=== PATIENT | male | born 1970 | race Caucasian/White ===

== ENCOUNTER 2018-01-24 15:14 | Observation (INO) | payer OTHER ==
[~2018-01-24] VITALS: Ht 182.9 cm; Wt 95.4 kg
[~2018-01-24 15:14] MED LIST: BLOOD THINNER; ESOM40CA25 PO; INSU100V13 SQ; LISI-334 PO; METF500T PO; METF500T5 PO
--- NOTE | 2018-01-24 15:28 | EKG ---
[address] [address] Test Date: 2018-01-24 Test Time: 15:24:24 Pat Name: ANIYA SOLO Department: Room: Gender: M Speech Clinician: : 1970 Requested By: BELEN URBINA Order Number: [id number] Reading MD: Measurements Intervals [place] Rate: 78 P: 25 IN: 164 QRS: -21 QRSD: 96 T: 24 QT: 378 QTc: 434 Interpretive Statements SINUS RHYTHM LEFTWARD AXIS QRS(T) CONTOUR ABNORMALITY CONSIDER ANTEROSEPTAL MYOCARDIAL DAMAGE POSSIBLY ABNORMAL ECG RI6.01 Unconfirmed report No previous ECG available for comparison
[2018-01-24] MEDS ORDERED: NITROGLYCERIN SUBLINGUAL 0.4 MG BOTTLE OF 25. SL PRN (15:30)
[2018-01-24] MEDS ORDERED: ASPIRIN 81 MG TAB.CHEW PO ONE (15:45)
[2018-01-24 15:54] LABS: BASO % 0 % (0-3); EOS # 0.1 x10^3/uL (0.0-0.7); EOS % 2 % (0-3); HEMATOCRIT 40.6 % (39.0-53.0); HEMOGLOBIN 14.1 g/dL (13.0-17.5); LYMPH # 1.7 x10^3/uL (1.0-4.8); LYMPH % 19 % (24-48); MEAN CORPUSCULAR HEMOGLOBIN 30 pg (25-35); MEAN CORPUSCULAR HGB CONC 35 g/dL (31-37); MEAN CORPUSCULAR VOLUME 85 fL (79-100); MONO # 0.5 x10^3/uL (0.0-1.1); MONO % 6 % (0-9); NEUT # 6.4 x10^3uL (1.8-7.7); NEUT % 73 % (31-73); PLATELET COUNT 222 x10^3/uL (140-400); RED BLOOD COUNT 4.76 x10^6/uL (4.30-5.70); RED CELL DISTRIBUTION WIDTH 13.7 % (11.5-14.5); WHITE BLOOD COUNT 8.8 x10^3/uL (4.0-11.0)
--- NOTE | 2018-01-24 15:58 | RAD ---
PORTABLE CHEST 1V dated 01/24/2018 3:20 PM. Comparison: 06/06/2014 Clinical Indication: chest pain x 2 days, pt shielded no hx of heart or lung disease. Findings: Single upright portable exam performed. Heart and mediastinal contours are stable. Lungs are somewhat hyperinflated but otherwise clear. No consolidation or pleural effusion. No pneumothorax. Impression: No acute findings. Electronically signed by: Chip An MD (01/24/2018 3:54 PM) [facility]
[2018-01-24 16:16] LABS: ALBUMIN 3.8 g/dL (3.4-5.0); CALCIUM 8.8 mg/dL (8.5-10.1); CREATININE 1.1 mg/dL (0.7-1.3); GFR 72.4; MAGNESIUM 1.8 mg/dL (1.8-2.4); TOTAL BILIRUBIN 1.1 mg/dL (0.2-1.0); TOTAL PROTEIN 7.6 g/dL (6.4-8.2)
[2018-01-24 16:18] LABS: POTASSIUM 3.8 mmol/L (3.5-5.1)
--- NOTE | 2018-01-24 16:25 | PHYS DOC ---
Past History Past Medical History: Diabetes, Hypertension, Other Past Surgical History: Appendectomy, Other Smoking: Non-smoker Alcohol Use: None Drug Use: None Adult General Chief Complaint Chief Complaint: CHEST PAIN HPI HPI 47-year-old male patient with history of diabetes mellitus and hypertension states she woke up at 2300 last night because of left side and substernal sharp chest pain with left upper extremity numbness constant pain that getting force with movement and taking deep breaths. Patient complaining of shortness of breath, dizziness and palpitations without nausea, fever and chills, cough and congestion. Patient states his pain was 10 over 10 last night and rated his pain 9/10 at arrival to ER. She states he took nitroglycerin 1 without change of his pain. Patient denies coronary artery disease but has family history of coronary artery disease. Review of Systems Review of Systems Constitutional: Denies fever or chills [] Eyes: Denies change in visual acuity, redness, or eye pain [] HENT: Denies nasal congestion or sore throat [] Respiratory: Denies cough or shortness of breath [] Cardiovascular: No additional information not addressed in HPI [] GI: Denies abdominal pain, nausea, vomiting, bloody stools or diarrhea [] : Denies dysuria or hematuria [] Musculoskeletal: Denies back pain or joint pain [] Integument: Denies rash or skin lesions [] Neurologic: Denies headache, focal weakness or sensory changes [] Endocrine: Denies polyuria or polydipsia [] All other systems were reviewed and found to be within normal limits, except as documented in this note. Current Medications Current Medications Current Medications Medications (Trade) Dose Ordered Sig/[facility] Start Time Stop Time Status Last Admin Dose Admin Aspirin (Children'S Aspirin) 324 mg 1X ONCE 01/24/18 15:45 01/24/18 15:46 DC 01/24/18 15:41 324 MG Nitroglycerin (Nitrostat) 0.4 mg PRN Q5MIN PRN 01/24/18 15:30 01/25/18 15:29 01/24/18 15:42 0.4 MG Allergies Allergies Allergies Coded Allergies Type Severity Reaction Last Updated Verified No Known Drug Allergies 06/06/14 No Physical Exam Physical Exam Constitutional: Well developed, well nourished, mild distress, non-toxic appearance. [] HENT: Normocephalic, atraumatic, bilateral external ears normal, oropharynx moist, no oral exudates, nose normal. [] Eyes: PERRLA, EOMI, conjunctiva normal, no discharge. [] Neck: Normal range of motion, no tenderness, supple, no stridor. [] Cardiovascular:Heart rate regular rhythm, no murmur [] Lungs & Thorax: Bilateral breath sounds clear to auscultation [] Abdomen: Bowel sounds normal, soft, no tenderness, no masses, no pulsatile masses. [] Skin: Warm, dry, no erythema, no rash. [] Back: No tenderness, no CVA tenderness. [] Extremities: No tenderness, no cyanosis, no clubbing, ROM intact, no edema. [] Neurologic: Alert and oriented X 3, normal motor function, normal sensory function, no focal deficits noted. [] Psychologic: Affect normal, judgement normal, mood normal. [] Current Patient Data Vital Signs Vital Signs Date Time Temp Pulse Resp B/P (MAP) Pulse Ox O2 Delivery O2 Flow Rate FiO2 01/24/18 15:42 86 141/76 Lab Results Laboratory Tests Test 01/24/18 15:30 White Blood Count 8.8 x10^3/uL (4.0-11.0) Red Blood Count 4.76 x10^6/uL (4.30-5.70) Hemoglobin 14.1 g/dL (13.0-17.5) Hematocrit 40.6 % (39.0-53.0) Mean Corpuscular Volume 85 fL (79-100) Mean Corpuscular Hemoglobin 30 pg (25-35) Mean Corpuscular Hemoglobin Concent 35 g/dL (31-37) Red Cell Distribution Width 13.7 % (11.5-14.5) Platelet Count 222 x10^3/uL (140-400) Neutrophils (%) (Auto) 73 % (31-73) Lymphocytes (%) (Auto) 19 % (24-48) L Monocytes (%) (Auto) 6 % (0-9) Eosinophils (%) (Auto) 2 % (0-3) Basophils (%) (Auto) 0 % (0-3) Neutrophils # (Auto) 6.4 x10^3uL (1.8-7.7) Lymphocytes # (Auto) 1.7 x10^3/uL (1.0-4.8) Monocytes # (Auto) 0.5 x10^3/uL (0.0-1.1) Eosinophils # (Auto) 0.1 x10^3/uL (0.0-0.7) Basophils # (Auto) 0.0 x10^3/uL (0.0-0.2) Sodium Level 137 mmol/L (136-145) Potassium Level 3.8 mmol/L (3.5-5.1) Chloride Level 103 mmol/L (98-107) Carbon Dioxide Level 26 mmol/L (21-32) Anion Gap 8 (6-14) Blood Urea Nitrogen 12 mg/dL (8-26) Creatinine 1.1 mg/dL (0.7-1.3) Estimated GFR (Cockcroft-Gault) 72.4 BUN/Creatinine Ratio 11 (6-20) Glucose Level 168 mg/dL (70-99) H Calcium Level 8.8 mg/dL (8.5-10.1) Magnesium Level 1.8 mg/dL (1.8-2.4) Total Bilirubin 1.1 mg/dL (0.2-1.0) H Aspartate Amino Transferase (AST) 27 U/L (15-37) Alanine Aminotransferase (ALT) 60 U/L (16-63) Alkaline Phosphatase 81 U/L (46-116) Creatine Kinase 107 U/L (39-308) Creatine Kinase MB (Mass) 1.4 ng/mL (0.0-3.6) Creatine Kinase MB Relative Index 1.3 % (0-4) Troponin I Quantitative < 0.017 ng/mL (0-0.055) EL-Ibn-U-Type Natriuretic Peptide 72 pg/mL (0-124) Total Protein 7.6 g/dL (6.4-8.2) Albumin 3.8 g/dL (3.4-5.0) Albumin/Globulin Ratio 1.0 (1.0-1.7) Lipase 224 U/L (73-393) EKG EKG EKG interpreted by me. EKG at 1524 showed normal sinus rhythm at rate of 78, leftward axis,[ poor R-wave progress in anteroseptal leads, no acute ST and T- wave abnormalities] Radiology/Procedures Radiology/Procedures [][address] [place] [address] IMAGING REPORT Signed PATIENT: ANIYA SOLO ACCOUNT: [id number] : 1970 LOCATION: ER AGE: 47 SEX: M EXAM STATUS: REG ER ORD. PHYSICIAN: BELEN URBINA MD REASON: chest pain PROCEDURE: PORTABLE CHEST 1V PORTABLE CHEST 1V dated 01/24/2018 3:20 PM. Comparison: 06/06/2014 Clinical Indication: chest pain x 2 days, pt shielded no hx of heart or lung disease. Findings: Single upright portable exam performed. Heart and mediastinal contours are stable. Lungs are somewhat hyperinflated but otherwise clear. No consolidation or pleural effusion. No pneumothorax. Impression: No acute findings. Electronically signed by: Chip An MD (01/24/2018 3:54 PM) [facility] DICTATED AND SIGNED BY: CHIP AN MD DATE: 01/24/18 [id number] CC: TRISTA GAITAN DO; BELEN URBINA MD ~ Course & Med Decision Making Course & Med Decision Making Pertinent Labs and Imaging studies reviewed. (See chart for details) Evaluation of patient in ER showed 47-year-old female patient with complaining of chest pain since last night that improved with nitroglycerin and morphine in ER. Patient had unremarkable labs and EKG and chest x-ray. Because of several cardiac risk factor plan to admit patient at Hospital. Dr Meadows informed at 1710 and agreed with plan of admission. Patient and his informed test results and plan of admission. Dragon Disclaimer Alejandro Disclaimer This electronic medical record was generated, in whole or in part, using a voice recognition dictation system. Departure Departure: Impression: Primary Impression: Acute chest pain Additional Impressions: History of appendectomy History of cholecystectomy Type II diabetes mellitus Hyperbilirubinemia Disposition: ADMITTED INPATIENT (at 1608) Admitting Physician: Bridger Meadows (At 1608) Condition: IMPROVED Referrals: TRISTA GAITAN DO (PCP) Problem Qualifiers BELEN URBINA MD Jan 24, 2018 16:24
[2018-01-24] MEDS ORDERED: MORPHINE SULFATE 4 MG/ML DISP.SYRIN. IV ONE (17:00)
[2018-01-24 20:45] VITALS: BP 138/80
[2018-01-24] MEDS ORDERED: ASPI81TA50 PO (21:30)
[2018-01-24] MEDS ORDERED: PANTOPRAZOLE IV 40 MG VIAL. IVP ONE (21:30)
[2018-01-24] MEDS ORDERED: CALCIUM CARBONATE 500 MG TAB.CHEW PO PRN (21:30)
[2018-01-24] MEDS ORDERED: LOSA50TA6 PO (21:30)
[2018-01-24] MEDS ORDERED: GLIP5TAB22 PO (21:30)
[2018-01-24] MEDS ORDERED: ONDANSETRON PF 4 MG/2 ML VIAL. IV PRN (21:30)
[2018-01-24] MEDS ORDERED: HYDROcodone/APAP 5/325MG 1 TAB TABLET PO PRN (21:30)
[2018-01-24] MEDS ORDERED: METF500T5 PO (21:31)
[2018-01-24] MEDS ORDERED: SAXA5TAB PO (21:32)
[2018-01-24] MEDS: metFORMIN 500 MG TABLET PO SCH (21:56)
[2018-01-24] MEDS ORDERED: LINAGLIPTIN 5 MG TABLET PO SCH (22:00)
[2018-01-24] MEDS ORDERED: LOSARTAN 50 MG TABLET. PO SCH (22:00)
[2018-01-25] VITALS: BP 139/77
[2018-01-25 05:28] VITALS: BP 133/92
[2018-01-25] MEDS ORDERED: PANTOPRAZOLE IV 40 MG VIAL. IVP SCH (07:30)
[2018-01-25] MEDS ORDERED: ASPIRIN ENTERIC COATED 81 MG TABLET.DR. PO SCH (08:00)
[2018-01-25] MEDS: metFORMIN 500 MG TABLET PO SCH ×2 (08:12→17:17)
--- NOTE | 2018-01-25 09:25 | PDOC2 ---
CONSULT Date of Admission DATE: 01/25/18 TIME: 09:19 Reason for Consult: cp Problem List Problems Medical Problems: (1) Acute chest pain Status: Acute (2) Hyperbilirubinemia Status: Acute (3) Type II diabetes mellitus Status: Acute Surgical Problems: (1) History of appendectomy Status: Acute (2) History of cholecystectomy Status: Acute History of Present Illness Mr Nair is a 47 year old male who presented to the ED with complaints of chest pain. He has a history of diabetes, hypertension and borderline hyperlipidemia. He reports complaints of left upper chest pain off an on for over three months. He was seen by his PCP at the [facility] who gave him prescription for NTG. He presented yesterday after an episode of pain that woke him from sleep that resolved spontaneously followed by pain that lasted all day yesterday. He describes the pain as an ache in his left chest. Pain is non exertional and non radiating but he did report some mild pain in his left hand. He denies any associated symptoms. He denies dyspnea on exertion, congestive symptoms, palpitations, lightheadedness or syncope. He does report some mildly increased fatigue and decreased exercise tolerance yesterday. Cardiovascular: HTN GI: GERD Endocrine: Diabetes Dermatology: Other (tinia pedis) Past Surgical History: Appendectomy, Cholecystectomy Family History diabetes, coronary disease with PR prior to age 60 in his father Social History non smoker, no ETOH, no illicit drugs. Current Medications Current Medications Aspirin (Children'S Aspirin) 324 mg 1X ONCE PO Last administered on 01/24/18at 15:41; Start 01/24/18 at 15:45; Stop 01/24/18 at 15:46; Status DC Nitroglycerin (Nitrostat) 0.4 mg PRN Q5MIN PRN SL CP RATING > 1/10 Last administered on 01/24/18at 15:42; Start 01/24/18 at 15:30; Stop 01/25/18 at 15:29 Morphine Sulfate (Morphine 4mg Syringe) 4 mg 1X ONCE IV Last administered on at 17:00; Start 01/24/18 at 17:00; Stop 01/24/18 at 17:01; Status DC Pantoprazole Sodium (Protonix Vial) 40 mg DAILYAC IVP Last administered on at 08:12; Start 01/25/18 at 07:30 Pantoprazole Sodium (Protonix Vial) 40 mg 1X ONCE IVP Last administered on 01/24at 21:57; Start 01/24/18 at 21:30; Stop 01/24/18 at 21:31; Status DC Calcium Carbonate/ Glycine (Tums) 500 mg PRN AFTMEALHC PRN PO INDIGESTION; Start 01/24/18 at 21:30 Acetaminophen/ Hydrocodone Bitart (Lortab 5/325) 1 tab PRN Q6HRS PRN PO PAIN; Start 01/24/18 at 21:30 Ondansetron HCl (Zofran) 4 mg PRN Q6HRS PRN IV NAUSEA/VOMITING; Start 01/24/18 at 21:30 Losartan Potassium (Cozaar) 50 mg HS PO ; Start 01/25/18 at 21:00; Stop 01/25/18 at 21:00; Status DC Aspirin (Aspirin Enteric Coated) 81 mg DAILYWBKFT PO Last administered on at 08:15; Start 01/25/18 at 08:00 Glipizide (Glucotrol Er) 5 mg HS PO ; Start 01/25/18 at 21:00 Metformin HCl (Glucophage) 500 mg BIDWMEALS PO Last administered on 01/25/18at 08 :12; Start 01/24/18 at 21:30 Linagliptin (Tradjenta) 5 mg QHS PO Last administered on 01/24/18at 21:56; Start 01/24/18 at 22:00 Losartan Potassium (Cozaar) 50 mg HS PO Last administered on 01/24/18at 21:57; Start 01/24/18 at 22:00 Active Scripts Active Reported Onglyza (Saxagliptin Hcl) 5 Mg Tablet 1 Tab PO HS Metformin Hcl 500 Mg Tablet 1 Tab PO BID Losartan Potassium 50 Mg Tablet 50 Mg PO HS Aspir-Low (Aspirin) 81 Mg Tablet.dr 1 Tab PO HS Glipizide Er (Glipizide) 5 Mg Tab.er.24 1 Tab PO HS Allergies: Coded Allergies: No Known Drug Allergies (Unverified , 06/06/14) Review of System as per HPI with addition of itching and pain in his feet secondary to athletes foot. General: Alert, Oriented X3, Cooperative, No acute distress HEENT: Atraumatic, EOMI, Mucous membr. moist/pink, Other (No JVD/HJR/Carotid bruits) Lungs: Clear to auscultation, Normal air movement Heart: Regular rate, Normal S1, Normal S2, No murmurs, Other (no gallops, clicks or rubs) Abdomen: Normal bowel sounds, Soft, No tenderness Extremities: No clubbing, No cyanosis, No edema, Normal pulses, Other (scaly rash between toes ) Neuro: Normal speech, Strength at 5/5 X4 ext Psych/Mental Status: Mental status NL, Mood NL VITALS Vital Signs Date Time Temp Pulse Resp B/P (MAP) Pulse Ox O2 Delivery O2 Flow Rate FiO2 01/25/18 08:44 Room Air 01/25/18 05:28 98.0 73 20 133/92 (106) 96 Labs Laboratory Tests Test 01/24/18 15:30 01/24/18 20:00 01/24/18 22:38 01/25/18 05:45 White Blood Count 8.8 x10^3/uL (4.0-11.0) Red Blood Count 4.76 x10^6/uL (4.30-5.70) Hemoglobin 14.1 g/dL (13.0-17.5) Hematocrit 40.6 % (39.0-53.0) Mean Corpuscular Volume 85 fL (79-100) Mean Corpuscular Hemoglobin 30 pg (25-35) Mean Corpuscular Hemoglobin Concent 35 g/dL (31-37) Red Cell Distribution Width 13.7 % (11.5-14.5) Platelet Count 222 x10^3/uL (140-400) Neutrophils (%) (Auto) 73 % (31-73) Lymphocytes (%) (Auto) 19 % (24-48) Monocytes (%) (Auto) 6 % (0-9) Eosinophils (%) (Auto) 2 % (0-3) Basophils (%) (Auto) 0 % (0-3) Neutrophils # (Auto) 6.4 x10^3uL (1.8-7.7) Lymphocytes # (Auto) 1.7 x10^3/uL (1.0-4.8) Monocytes # (Auto) 0.5 x10^3/uL (0.0-1.1) Eosinophils # (Auto) 0.1 x10^3/uL (0.0-0.7) Basophils # (Auto) 0.0 x10^3/uL (0.0-0.2) Prothrombin Time 10.2 SEC (9.4-11.4) Prothromb Time International Ratio 1.0 (0.9-1.1) D-Dimer (Ana) 0.26 mg/L (0.00-0.50) Sodium Level 137 mmol/L (136-145) Potassium Level 3.8 mmol/L (3.5-5.1) Chloride Level 103 mmol/L (98-107) Carbon Dioxide Level 26 mmol/L (21-32) Anion Gap 8 (6-14) Blood Urea Nitrogen 12 mg/dL (8-26) Creatinine 1.1 mg/dL (0.7-1.3) Estimated GFR (Cockcroft-Gault) 72.4 BUN/Creatinine Ratio 11 (6-20) Glucose Level 168 mg/dL (70-99) Calcium Level 8.8 mg/dL (8.5-10.1) Magnesium Level 1.8 mg/dL (1.8-2.4) Total Bilirubin 1.1 mg/dL (0.2-1.0) Aspartate Amino Transf (AST/SGOT) 27 U/L (15-37) Alanine Aminotransferase (ALT/SGPT) 60 U/L (16-63) Alkaline Phosphatase 81 U/L (46-116) Creatine Kinase 107 U/L (39-308) Creatine Kinase MB (Mass) 1.4 ng/mL (0.0-3.6) Creatine Kinase MB Relative Index 1.3 % (0-4) Troponin I Quantitative < 0.017 ng/mL (0-0.055) < 0.017 ng/mL (0-0.055) < 0.017 ng/mL (0-0.055) < 0.017 ng/mL (0-0.055) LD-Qcj-K-Type Natriuretic Peptide 72 pg/mL (0-124) Total Protein 7.6 g/dL (6.4-8.2) Albumin 3.8 g/dL (3.4-5.0) Albumin/Globulin Ratio 1.0 (1.0-1.7) Lipase 224 U/L (73-393) Test 01/25/18 07:49 Glucose (Fingerstick) 148 mg/dL (70-99) Images EKG - sinus rhythm, leftward axis, no acute ischemic changes CXR - no acute findings Assessment/Plan 1. Chest pain, atypical - PR ruled out. EKG without acute changes. Less likely cardiac in origin, however when considering his risk factors including diabetes, hypertension, hyperlipidemia and family history of premature coronary disease, would suggest echocardiogram and MPI to rule out atypical presentation of angina due to ischemia. Will continue aspirin. No beta tatum today due to treadmill MPI this afternoon. check lipids and add statin as indicated. 2. hypertension - continue home meds, await echo. 3. borderline hyperlipidemia - check lipids 4. diabetes mellitus - per IM 5. tinea pedis - per IM LEANA SALAS HEAD SAMPLER Jan 25, 2018 09:25
[2018-01-25 11:02] VITALS: BP 124/81
[2018-01-25 15:38] VITALS: BP 147/97
[2018-01-25] MEDS ORDERED: KETOROLAC 30 MG/ML VIAL. IV ONE (15:45)
[2018-01-25] MEDS ORDERED: CLOT15CR3 TP (17:57)
[2018-01-25] MEDS ORDERED: PANT40TA3 PO (19:11)
[2018-01-25 20:01] VITALS: BP 125/87
[2018-01-25] MEDS ORDERED: LOSARTAN 50 MG TABLET. PO SCH (21:00)
--- NOTE | 2018-01-26 00:32 | RAD ---
MR#: [id number] Date of Study: 01/25/2018 Ordering Physician: LEANA SALAS, Referring Physician: SABINE SYKES Tech: RT Jermaine (R) (N) APPROVED REPORT Test Type: Exercise Stress Nurse/Tech: Jonathan Test Indications: CP Cardiac History: No known cardiac Resting Heart Rate: 80 bpm Resting Blood Pressure: 132/78mmHg Pretest Chest Pain: None Stress Symptoms dyspnea POST EXERCISE Reason for Termination: Reached target heart rate Target HR: Yes Max HR: 154 bpm 104% of Maximum Predicted HR: 148 bpm Exercise duration: 9.25 min:sec, 3 Stage Max Blood Pressure: 156/87mmHg Chest Pain: Yes. Mild cp during deep insp Arrhythmia: No. ST Change: No. INTERPRETATION Stress EKG Conclusion: No evidence of stress induced EKG changes. Imaging Protocol IMAGE PROTOCOL: Rest Tc-99m/stress Tc-99m 1 day Rest: Stress: Viability: Radiopharm.Tc99m [id number] Sestamibi Amkj39qRi 33mCi Duration 20min. 20min. Img Date 01/25/2018 01/25/2018 Inj-Img Pdxn27ykd. 60min. Rest Admin Site:IV - Right AntecubitalAdministrator: RT Jermaine (R)(N) Stress Admin Site: IV - Right AntecubitalAdministrator: RT Jermaine (R)(N) STRESS DATA End Diast. Vol.125.0mlAv. Heart Rate80.0bpm LVEDV index BSA2.0mlCardiac Output0.1L/min End Syst. Vol.37.0mlCO Index BSA7.1L/min LVESV index BSA1.0mlMyocardial Ecgp819.0g Eject. Qaeofyrv43.0% Stress Rates Pk. Fill Rate3.88EDV/secLVtime Pk. Fill 117.54msec Pk. Empty Rate3.85ESV/secLVtime Pk. Xlbcb179.28msec / Pk. Fill2.32EDV/sec Stress Scores Regional WT0.00Summed WT1.00 Regional WM0.00Summed WM1.00 LV Perfusion Small to moderate sized, FIXED basal to mid inferior wall defect suggestive of diaphragmatic attenuat ion. Cannot rule out prior infarct. Wall Motion Normal EF at > 70% LV Perf. Quant 17 Seg. SSS2.00 17 Seg. SRS5.00 17 Seg. SDS0.00 Stress Defect Extent (% LAD)0.00Rest Defect Extent (% LAD)0.00Rev. Defect Extent (% LAD)0.00 Stress Defect Extent (% LCX) 8.80Rest Defect Extent (% LCX)18.80Rev. Defect Extent (% LCX)0.00 Stress Defect Extent (% RCA)13.30Rest Defect Extent (% RCA)11.10Rev. Defect Extent (% RCA)0.00 Stress Defect Extent (% LILLY)5.70Rest Defect Extent (% LILLY)9.80Rev. Defect Extent (% LILLY)0.00 Other Information Quality:Good Risk Assessment: Low-Moderate Risk Conclusion 1. No evidence of stress induced EKG changes. Cannot rule out baseline inferior infarct (old) 2. Average exercise capacity 3. Fixed inferior wall defect suggestive of diaphragmatic attenuation versus prior infarct without is chemia. 4. Normal EF at > 70% 5. Low to moderate risk for future events. Signed by : Harjit Bolton, Electronically Approved : 01/25/2018 19:19:11
--- NOTE | 2018-01-26 15:48 | HP ---
ADMIT DATE: 01/24/2018 HISTORY OF PRESENT ILLNESS: The patient is a 47-year-old male patient who presented to the Emergency Room complaining of chest pain. His complaint was mostly of the left upper chest pain off and on for over 3 months now. He was seen by his primary care physician at the [place] who gave him a prescription for nitroglycerin. He presented after an episode of pain that woke him up from sleep that resolved spontaneously followed by pain that lasted all day yesterday. He describes the pain as an ache in his left chest. Pain is nonexertional, nonradiating. He did report some mild pain in his left hand. He denied any associated symptoms. In particular, he denied any nausea, vomiting, diaphoresis. Denied any dyspnea on exertion, congestive symptoms, palpitations, lightheadedness, or syncope. He did complain of mildly increased fatigue and decreased exercise tolerance. He was evaluated in the Emergency Room and his first set of cardiac enzymes showed troponin to be less than 0.017 and his EKG showed that he was in sinus rhythm with heart rate of 78 with leftward axis deviation, but no ST segment elevation or depression and he was admitted basically with chest pain and to do 2 more sets of cardiac enzyme to check his fasting lipid profile and to consult the cardiology team. PAST MEDICAL HISTORY: Significant for type 2 diabetes, history of hyperbilirubinemia as well as gastroesophageal reflux disease and tinea pedis. PAST SURGICAL HISTORY: Significant for appendectomy and cholecystectomy. FAMILY HISTORY: Positive for diabetes, coronary artery disease, myocardial infarction to both brother, age 60, and his father. SOCIAL HISTORY: He does not smoke, drink alcohol, or use any recreational drugs. ALLERGIES: He has no known drug allergies. MEDICATIONS: He is currently on following medications: He is on losartan potassium 50 mg at bedtime, aspirin 81 mg once a day, Protonix 40 mg daily, metformin 500 mg twice a day, Onglyza 5 mg daily, glipizide 5 mg once a day at bedtime, Lotrisone cream applied topically twice a day. REVIEW OF SYSTEMS: As per history of present illness. PHYSICAL EXAMINATION: GENERAL: On arrival to the Emergency Room, he looked well and was clearly in no apparent respiratory distress. No pallor, jaundice, cyanosis, or thyromegaly. No jugular venous distention. No lower limb edema. VITAL SIGNS: His heart rate was 85, blood pressure was 140/76, temperature was 98, respiratory rate was 13, and oxygen saturation was 96% on room air. HEAD, EYES, EARS, NOSE, AND THROAT: Showed he is normocephalic, atraumatic. NECK: Supple. HEART: Normal first and second heart sounds with no gallop, rub, or murmur. CHEST: Clear to auscultation. No crepitation or rhonchi. ABDOMEN: Distended, soft, nontender. NEUROLOGIC: He is awake, alert, responding appropriately. All his cranial nerves are intact. He moves extremities without difficulty. He ambulates without assistance or assistive devices. LABORATORY DATA: His labwork on admission showed serum sodium of 137, potassium 3.8, chloride 103, bicarbonate 26, anion gap of 8, BUN 12, creatinine 1.1. Estimated GFR was 72 mL per minute, his glucose was 168, calcium was 8.8, magnesium was 1.8. Total bilirubin was 1.1. AST, ALT, alkaline phosphatase were normal. His total protein was 7.6, albumin 3.8. His white cell count was 8800, hemoglobin 14, hematocrit 42, MCV 85, and platelet count of 222,000 with normal manual differential. His prothrombin time was 7.2, INR of 1, aPTT was 0.26. His chest x-ray showed that the heart and mediastinal contours are stable. Lungs are somewhat hyperinflated, but otherwise clear. No consolidation, pleural effusion, or pneumothorax. The patient was admitted to do 2 more sets of cardiac enzyme, check his fasting lipid profile, consult the dumper. ADENIKE DUFFY MD DR: CAMMIE/skylar JOB#: [id number] / [id number]
--- NOTE | 2018-01-26 17:28 | DS ---
DATE OF DISCHARGE: 01/25/2018 HOSPITAL COURSE: The patient was admitted with chest pain. He has had 3 sets of cardiac enzymes that were negative. He was seen in consultation by the Cardiology team and underwent nuclear stress test, which showed no evidence of stress induced EKG changes, cannot rule out baseline inferior infarcts and old one has an average exercise capacity. He has fixed inferior wall defect, suggestive of diaphragmatic attenuation versus prior inferior wall infarction. His ejection fraction is normal and is more than 70% and was considered low to moderate risk for future events. His fasting lipid profile showed the serum triglycerides of 156, total cholesterol was 139, LDL was 75, VLDL was 31, and HDL was 33 with a ratio of 4. PHYSICAL EXAMINATION: GENERAL: On examining him on the day of discharge, he looked well and was clearly in no apparent respiratory distress. No pallor, jaundice, cyanosis, or thyromegaly. No jugular venous distension. No lower limb edema. VITAL SIGNS: His heart rate was 74, blood pressure was 125/87, temperature was 97.3, respiratory rate 20, and oxygen saturation was 94%. HEAD, EYES, EARS, NOSE AND THROAT: Showed he is normocephalic and atraumatic. NECK: Supple. CARDIAC: Normal first and second heart sounds with no gallop, rub or murmur. CHEST: Clear to auscultation. No crepitation or rhonchi. ABDOMEN: Distended, soft, nontender. NEUROLOGIC: He is awake, alert, responding appropriately. All his cranial nerves are intact. He moves extremities without difficulty, ambulates without assistance or assistive devices. DISCHARGE MEDICATIONS: The patient was discharged home to continue on following medications: Aspirin 81 mg once a day, Lotrisone cream apply topically twice a day, glipizide extended release 5 mg once a day, losartan potassium 50 mg at bedtime, metformin extended release 500 mg twice a day, Protonix 40 mg once a day and Onglyza 5 mg at bedtime. FINAL DISCHARGE DIAGNOSES: Chest pain, myocardial infarction ruled out and has type 2 diabetes, hypertension, hyperlipidemia, and gastroesophageal reflux disease. DAENIKE DUFFY MD DR: CAMMIE/skylar JOB#: [id number] / [id number]
== END 2018-01-25 20:03 | disposition home or self-care (01) ==
LOC: ER 15:14 → 1 SOUTH 16:38 → INTOOBSV 16:38
PROVIDERS: ADMIT Internal Medicine; ATTEND Internal Medicine
DX: R07.89 Other chest pain (principal); K21.9 Gastro-esophageal reflux disease without esophagitis; E11.9 Type 2 diabetes mellitus without complications; E78.5 Hyperlipidemia, unspecified; B35.3 Tinea pedis; I10 Essential (primary) hypertension; Z82.49 Family history of ischemic heart disease and other diseases of the circulatory system; Z83.3 Family history of diabetes mellitus; Z90.49 Acquired absence of other specified parts of digestive tract
CPT/HCPCS: 36415; 71045; 78452; 80053; 80061; 82553; 82947; 83690; 83735; 83880; 84484; 85025; 85379; 85610; 93005; 93017; 96374; 96375; 96376; 99285; A9500; C9113; G0378; J1885; J2270; G0379

== ENCOUNTER → 2020-07-02 | Outpatient (CLI) | payer OTHER ==
[~2020-07-02] MED LIST changes: +ASPI81TA50 PO; +CLOT15CR3 TP; +GLIP5TAB22 PO; +LOSA50TA86 PO; +METF500T16 PO; -METF500T5 PO; +PANT40TA3 PO; +SAXA5TAB PO
--- NOTE | 2020-07-02 18:56 | RAD ---
PROCEDURE: XR THORACIC SPINE 3VIEWS, XR LUMBAR SPINE 2-3V STUDY DATE: 07/02/2020 CLINICAL INDICATION / HISTORY: Reason: BACK PAIN / Spl. Instructions: / History: . TECHNIQUE: Thoracic spine was examined in the AP lateral and swimmers projections. COMPARISON: None FINDINGS: The osseous structures are normally mineralized. There is a normal thoracic kyphosis with n ormal alignment of the thoracic vertebral bodies. There is preservation of the vertebral body heights as well as the intervertebral disk space heights throughout the thoracic spine. No evidence of acute fracture or subluxation is identified. IMPRESSION: Unremarkable examination of the thoracic spine as described. PROCEDURE: XR THORACIC SPINE 3VIEWS, XR LUMBAR SPINE 2-3V STUDY DATE: 07/02/2020 CLINICAL INDICATION / HISTORY: Reason: BACK PAIN / Spl. Instructions: / History: . TECHNIQUE: 3 views of the lumbar spine were obtained in AP, lateral and coned-down lateral views. COMPARISON: None FINDINGS: 6 lumbar segments are identified. The inferior most lumbar type vertebra is considered L6 f or the purposes of this reporting. Mild increased density at the pars interarticularis at L4 and L5 ( of 6) is suggestive of stress reactions in the pars interarticularis. Lumbar vertebral bodies are nor mal in height and alignment. Disc height is maintained. Pedicles are intact. IMPRESSION: Possible stress reactions in the L4 and L5 pars interarticularis out of 6 lumbar type santi tebrae. This can be correlated with bone scan or MRI as clinically warranted to exclude stress reacti ons or incipient fracture. Electronically signed by: Ericka Grossman MD (07/02/2020 6:54 PM) [id number]
== END ==
LOC: PMG 15:37
PROVIDERS: ATTEND Physician Assistant Medical
DX: M40.294 Other kyphosis, thoracic region (principal)
CPT/HCPCS: 72072; 72100